=== PATIENT | female | born 1960 | race American Indian/Alaskan Native ===

== ENCOUNTER 2017-05-29 10:37 | Outpatient (CLI) | payer BC ==
--- NOTE | 2017-05-29 13:18 | Mammography Report ---
BILATERAL DIGITAL SCREENING MAMMOGRAM with CAD: 05/29/17 10:37:00 CLINICAL: Routine screening.History of endometrial cancer. COMPARISON:03/28/16 FINDINGS: The breasts are almost entirely fatty.A left [id number]-c-[id number] obscures a portion of the left axilla. No mass, architectural distortion or suspicious calcifications. IMPRESSION: No mammographic evidence of malignancy. BI-RADS CATEGORY: 1 - - Negative RECOMMENDATION: Routine mammographic screening in one year. COMMENT: Patient follow-up letters are generated by our [employer] application.
== END 2017-05-29 10:38 | disposition home or self-care (01) ==
LOC: SPVWC 10:37
DX: Z12.31 Encounter for screening mammogram for malignant neoplasm of breast (principal); Z85.89 Personal history of malignant neoplasm of other organs and systems
CPT/HCPCS: 77067

== ENCOUNTER 2018-05-31 15:46 | Outpatient (CLI) | payer BC ==
--- NOTE | 2018-05-31 16:16 | Mammography Report ---
BILATERAL DIGITAL SCREENING MAMMOGRAM with CAD: 05/31/18 15:46:00 CLINICAL: Routine screening.History of endometrial cancer. COMPARISON:05/29/17 FINDINGS: The breasts are almost entirely fatty.A left [id number]-[id number] obscures a portion of the left axilla. No mass, architectural distortion or suspicious calcifications. IMPRESSION: No mammographic evidence of malignancy. BI-RADS CATEGORY: 1 - - Negative RECOMMENDATION: Routine mammographic screening in one year. COMMENT: Patient follow-up letters are generated by our [employer] application.
== END 2018-05-31 15:47 | disposition home or self-care (01) ==
LOC: SPVWC 15:46
DX: Z12.31 Encounter for screening mammogram for malignant neoplasm of breast (principal); Z90.710 Acquired absence of both cervix and uterus; Z90.721 Acquired absence of ovaries, unilateral; Z87.891 Personal history of nicotine dependence
CPT/HCPCS: 77067

== ENCOUNTER 2021-08-06 08:55 | Outpatient (CLI) | payer BC ==
--- NOTE | 2021-08-07 10:03 | Mammography Report ---
DIGITAL SCREENING MAMMOGRAM WITH CAD, 08/06/2021 CLINICAL INFORMATION / INDICATION: Routine screening mammography. SCREENING MAMMO TECHNIQUE: Digital bilateral 2D mammography was obtained in the craniocaudal and mediolateral obliqu e projections. This examination was interpreted with the benefit of Computer-Aided Detection analysis . COMPARISON: 07/30/2012 FINDINGS: Breast Density: The breasts are almost entirely fatty. No dominant mass, suspicious calcifications, or architectural distortion in either breast. IMPRESSION: No mammographic evidence of malignancy. Follow up recommendation: Routine yearly BI-RADS Category 1: NEGATIVE A "normal" or negative report should not discourage follow up or biopsy of a clinically significant f inding. A written summary of these findings will be mailed to the patient. The patient will be entered into a mammography reporting system which will generate a reminder letter for the patient's next appointmen t at the appropriate interval. The [employer] recommends yearly mammograms starting at age 40 and continuing as l fransisco as a woman is in good health. Breast MRI is recommended for women with an approximate 20-25% or greater lifetime risk of breast cancer, including women with a strong family history of breast or ova costa cancer or who have been treated for Hodgkin's disease. Signer Name: Jordi Crews MD Signed: 08/07/2021 9:59 AM Workstation Name: [employer]
== END 2021-08-06 08:56 | disposition home or self-care (01) ==
LOC: SPVWC 08:55
PROVIDERS: ATTEND Family Medicine
DX: Z12.31 Encounter for screening mammogram for malignant neoplasm of breast (principal)
CPT/HCPCS: 77067